=== PATIENT | female | born 1955 | race Caucasian/White ===

== ENCOUNTER 2023-12-30 07:42 | Inpatient (IN) | payer OTHER ==
[~2023-12-30] VITALS: Ht 170.2 cm; Wt 63.0 kg
[2023-12-30] MEDS ORDERED: iohexoL 350 mgI/mL, 100 ML INFUS..BTL IV ONE (07:50)
[2023-12-30 08:01] VITALS: BP_SYST 168; PULSE 105; RESP 18; TEMP 98.3; O2SAT 98
[2023-12-30 08:23] LABS: BASOPHILS % (AUTO) 0.5 % (0.0-2.0); EOSINOPHILS # (AUTO) 0.1 K/uL (0.0-0.4); EOSINOPHILS % (AUTO) 2.1 % (0.0-4.0); HEMATOCRIT 39.6 % (36-48); HEMOGLOBIN 13.5 g/dL (12.0-16.0); LYMPHOCYTES # (AUTO) 1.8 K/uL (1.0-5.5); LYMPHOCYTES % (AUTO) 45.2 % (20.5-51.5); MEAN CORPUSCULAR HEMOGLOBIN 31 pg (27-31); MEAN CORPUSCULAR HGB CONC 34 % (32-36); MEAN CORPUSCULAR VOLUME 89 fL (79.0-98.0); MONOCYTES # (AUTO) 0.4 K/uL (0.0-1.0); MONOCYTES % (AUTO) 11.2 % (1.7-9.3); NEUTROPHILS # (AUTO) 1.6 K/uL (1.8-7.7); PLATELET COUNT (AUTO) 354 K/uL (130-430); RED BLOOD CELL COUNT(AUTO) 4.43 MIL/uL (4.2-6.2); RED CELL DISTRIBUTION WIDTH 14.3 % (9.0-15.0); WHITE BLOOD COUNT (AUTO) 3.9 K/uL (4.8-10.8)
[2023-12-30 08:36] LABS: INR 0.9 (0.8-1.2); PROTHROMBIN TIME 9.6 SECS (9.5-12.5)
[2023-12-30 08:41] LABS: ANION GAP 11 (5-15); CALCIUM 8.7 mg/dL (8.4-11.0); CARBON DIOXIDE 27 mmol/L (23-29); CHLORIDE 103 mmol/L (98-107); CHOLESTEROL 249 mg/dL (<200); CREATININE 0.76 mg/dL (0.55-1.30); GFR AFRICAN AMERICAN 97 mL/min (>90); GFR NON AFRICAN-AMERICAN 80 mL/min (>90); GLUCOSE 93 mg/dL (74-106); HDL CHOLESTEROL 85 mg/dL (>55); POTASSIUM 3.7 mmol/L (3.5-5.1); SODIUM SERUM 141 mmol/L (136-145); TRIGLYCERIDES 98 mg/dL (30-150); UREA NITROGEN, BLOOD 12 mg/dL (8-21)
[2023-12-30 08:44] LABS: HEMOGLOBIN A1C 5.8 % (<5.7)
[2023-12-30] MEDS: ASPIRIN 81 MG TAB.CHEW PO ONE (08:58)
[2023-12-30] MEDS: CLOPIDOGREL BISULFATE 75 MG TABLET PO ONE (08:58)
[2023-12-30] MEDS ORDERED: AMIT10TA6 PO (09:21)
[2023-12-30] MEDS ORDERED: HYDR-3607 PO (09:21)
[2023-12-30] MEDS ORDERED: ONDANSETRON HCL 4 MG/2 ML VIAL IVP PRN (11:00)
[2023-12-30] MEDS: NORMAL SALINE 5 ML DISP.SYRIN IVF SCH (12:22)
[2023-12-30] MEDS: LORazepam 2 MG/ML VIAL IVP PRN (12:46)
[2023-12-30 15:32] VITALS: BP_SYST 124; PULSE 100; RESP 18; TEMP 97.8
[2023-12-30 16:00] VITALS: BP_SYST 124; PULSE 99; RESP 18; TEMP 97.1; O2SAT 96
[2023-12-30 20:00] VITALS: BP_SYST 128; PULSE 104; RESP 20; TEMP 98.1; O2SAT 94
[2023-12-30] MEDS: HYDROcodone/ACETAMIN 10-325 MG TAB PO PRN (20:46)
[2023-12-30] MEDS: AMITRIPTYLINE HCL 10 MG TABLET (ELAVIL) PO SCH (20:46)
[2023-12-31 02:01] VITALS: BP_SYST 142; PULSE 85; RESP 18; TEMP 97.4; O2SAT 94
[2023-12-31 05:18] LABS: BASOPHILS % (AUTO) 0.6 % (0.0-2.0); EOSINOPHILS # (AUTO) 0.2 K/uL (0.0-0.4); EOSINOPHILS % (AUTO) 4.2 % (0.0-4.0); HEMATOCRIT 35.2 % (36-48); LYMPHOCYTES # (AUTO) 2.7 K/uL (1.0-5.5); LYMPHOCYTES % (AUTO) 48.6 % (20.5-51.5); MEAN CORPUSCULAR HEMOGLOBIN 31 pg (27-31); MEAN CORPUSCULAR HGB CONC 34 % (32-36); MEAN CORPUSCULAR VOLUME 90 fL (79.0-98.0); MONOCYTES # (AUTO) 0.6 K/uL (0.0-1.0); MONOCYTES % (AUTO) 10.2 % (1.7-9.3); NEUTROPHILS % (AUTO) 36.4 % (40.0-70.0); PLATELET COUNT (AUTO) 303 K/uL (130-430); RED BLOOD CELL COUNT(AUTO) 3.93 MIL/uL (4.2-6.2); RED CELL DISTRIBUTION WIDTH 14.1 % (9.0-15.0); WHITE BLOOD COUNT (AUTO) 5.5 K/uL (4.8-10.8)
[2023-12-31 06:08] LABS: ALBUMIN 2.9 g/dL (3.4-4.8); CALCIUM 8.4 mg/dL (8.4-11.0); CREATININE 0.75 mg/dL (0.55-1.30); PHOSPHORUS 4.6 mg/dL (2.7-4.5); POTASSIUM 3.9 mmol/L (3.5-5.1); TOTAL BILIRUBIN 0.3 mg/dL (0.0-1.0); TOTAL PROTEIN, SERUM 6.1 g/dL (6.4-8.3)
[2023-12-31 08:24] VITALS: BP_SYST 120; PULSE 86; RESP 16; TEMP 97.7; O2SAT 96
[2023-12-31 08:30] VITALS: O2SAT 98
[2023-12-31 11:06] VITALS: BP_SYST 110; PULSE 83; RESP 17; TEMP 97.3; O2SAT 98
[2023-12-31] MEDS: ACETAMINOPHEN 325 MG TABLET PO PRN (11:17)
[2023-12-31] MEDS: HYDROcodone/ACETAMIN 5-325 MG TAB (NORCO/ VICODIN) PO PRN (16:05)
[2023-12-31 16:47] VITALS: BP_SYST 114; PULSE 84; RESP 16; TEMP 98.1; O2SAT 97
[2023-12-31 20:00] VITALS: BP_SYST 144; PULSE 78; RESP 16; TEMP 98.1; O2SAT 96
[2024-01-01] VITALS: BP_SYST 134; PULSE 62; RESP 16; TEMP 97.9; O2SAT 99
[2024-01-01 05:01] LABS: BASOPHILS % (AUTO) 0.5 % (0.0-2.0); EOSINOPHILS # (AUTO) 0.2 K/uL (0.0-0.4); EOSINOPHILS % (AUTO) 4.9 % (0.0-4.0); HEMATOCRIT 36.9 % (36-48); HEMOGLOBIN 12.6 g/dL (12.0-16.0); LYMPHOCYTES # (AUTO) 2.4 K/uL (1.0-5.5); LYMPHOCYTES % (AUTO) 51.6 % (20.5-51.5); MEAN CORPUSCULAR HEMOGLOBIN 31 pg (27-31); MEAN CORPUSCULAR HGB CONC 34 % (32-36); MEAN CORPUSCULAR VOLUME 90 fL (79.0-98.0); MONOCYTES # (AUTO) 0.5 K/uL (0.0-1.0); MONOCYTES % (AUTO) 10.4 % (1.7-9.3); NEUTROPHILS # (AUTO) 1.5 K/uL (1.8-7.7); NEUTROPHILS % (AUTO) 32.6 % (40.0-70.0); PLATELET COUNT (AUTO) 328 K/uL (130-430); RED BLOOD CELL COUNT(AUTO) 4.11 MIL/uL (4.2-6.2); WHITE BLOOD COUNT (AUTO) 4.7 K/uL (4.8-10.8)
[2024-01-01 05:16] LABS: CALCIUM 8.6 mg/dL (8.4-11.0); CREATININE 0.81 mg/dL (0.55-1.30); POTASSIUM 4.3 mmol/L (3.5-5.1)
[2024-01-01 08:24] VITALS: BP_SYST 140; PULSE 75; RESP 16; TEMP 98.4; O2SAT 98
[2024-01-01 08:30] VITALS: O2SAT 98
[2024-01-01] MEDS: ASPIRIN 81 MG TAB.CHEW PO ONE (10:07)
[2024-01-01] MEDS: ATORVASTATIN 20 MG TABLET PO ONE (10:08)
[2024-01-01] MEDS: LOSARTAN POTASSIUM 25 MG TABLET PO ONE (10:09)
[2024-01-01] MEDS ORDERED: ASPI-1393 PO (10:41)
[2024-01-01] MEDS ORDERED: LIP20 PO (10:41)
[2024-01-01] MEDS ORDERED: LOSA-412 PO (10:41)
[2024-01-01] MEDS: ASPIRIN 81 MG TABLET(ECOTRIN) PO ONE (10:45)
[2024-01-01 12:00] VITALS: BP_SYST 124; PULSE 80; RESP 16; TEMP 97.2; O2SAT 98
[2024-01-01 12:22] VITALS: BP_SYST 124; PULSE 80; RESP 16; TEMP 97.2; O2SAT 98
[2024-01-02] MEDS ORDERED: ATORVASTATIN 20 MG TABLET PO SCH (09:00)
[2024-01-02] MEDS ORDERED: ASPIRIN 81 MG TAB.CHEW PO SCH (09:00)
[2024-01-02] MEDS ORDERED: ASPIRIN 81 MG TABLET(ECOTRIN) PO SCH (09:00)
[2024-01-02] MEDS ORDERED: LOSARTAN POTASSIUM 25 MG TABLET PO SCH (09:00)
== END 2024-01-01 13:40 | disposition home or self-care (01) | DRG 68 ==
LOC: SED 07:42 → STU 10:56 → SMU 01-01 11:05
PROVIDERS: ADMIT Preventive Medicine Preventive Medicine/Occupational Environmental Medicine; ATTEND Preventive Medicine Preventive Medicine/Occupational Environmental Medicine
DX: I65.29 Occlusion and stenosis of unspecified carotid artery (principal); E44.0 Moderate protein-calorie malnutrition; M79.7 Fibromyalgia; D72.819 Decreased white blood cell count, unspecified; E78.2 Mixed hyperlipidemia; E83.39 Other disorders of phosphorus metabolism; E88.09 Other disorders of plasma-protein metabolism, not elsewhere classified; I10 Essential (primary) hypertension; Z79.899 Other long term (current) drug therapy; Z87.891 Personal history of nicotine dependence; Z68.21 Body mass index [BMI] 21.0-21.9, adult
CPT/HCPCS: 36415; 70450; 70496; 70498; 70551; 71045; 80048; 80053; 80061; 83037; 83735; 84100; 84484; 85025; 85610; 85730; 86886; 86900; 86901; 93005; 93306; 96374; 99291; G0378; J2060; Q9967